=== PATIENT | male | born 1955 | race Caucasian/White ===

== ENCOUNTER 2017-01-15 15:33 | Emergency (ER) | payer BC ==
[2017-01-15] MEDS ORDERED: IPRATROPIUM-ALBUTEROL 3 ML NEB INHALATION STA (16:00)
[2017-01-15] MEDS ORDERED: SODIUM CHLORIDE 0.9% 1,000 ML IV ONE (16:01)
[2017-01-15 16:50] LABS: Anion Gap 12 mmol/L; Blood Urea Nitrogen 13 mg/dL (9-20); Carbon Dioxide 25 mmol/L (22-30); Chloride 102 mmol/L (98-107); Glucose 93 mg/dL (74-99); Non-African American GFR(MDRD) >60 (>60 ml/min/1.73 sqM); Potassium 4.5 mmol/L (3.5-5.1); Sodium 139 mmol/L (137-145)
--- NOTE | 2017-01-15 16:52 | ED ---
General Adult HPI - General Chief complaint: Upper Respiratory Infection Stated complaint: Bronchitis Time Seen by Provider: 01/15/17 15:51 Source: patient, family, RN notes reviewed Mode of arrival: ambulatory Limitations: no limitations - History of Present Illness Initial comments: 61-year-old male presenting for cough and shortness of breath. Patient states that he began developing symptoms about 1 week ago. He states he was seen several days ago by [facility] and started on Augmentin for sinus infection and bronchitis. He states that he has had persistent nonproductive cough. He states that he does smoke tobacco but denies any official COPD diagnosis. He is not currently on any other medications. He has been trying [id number] medications without relief the symptoms. He denies any chest pain associated. He states he has had some fevers and chills associated. - Related Data Home Medications Medication Instructions Recorded Confirmed Amoxic-Pot Clav 875-125Mg 1 tab PO Q12HR 01/15/17 01/15/17 [Augmentin 875-125] D-Methorphan/Acetamin/Doxylamn 30 ml PO HS PRN 01/15/17 01/15/17 [Vicks Nyquil Cold & Flu Liquid] Vicks Sinex Nasal [place] 1 spray NASAL DAILY PRN 01/15/17 01/15/17 Previous Rx's Medication Instructions Recorded Azithromycin [Zithromax] 250 mg PO DAILY #6 tab 01/15/17 Allergies Allergy/AdvReac Type Severity Reaction Status Date / Time No Known Allergies Allergy Verified 01/15/17 15:48 Review of Systems ROS Statement: Those systems with pertinent positive or pertinent negative responses have been documented in the HPI. ROS Other: All systems not noted in ROS Statement are negative. Past Medical History Past Medical History: GERD/Reflux History of Any Multi-Drug Resistant Organisms: None Reported Past Surgical History: No Surgical Hx Reported Past Anesthesia/Blood Transfusion Reactions: No Reported Reaction Past Psychological History: No Psychological Hx Reported Smoking Status: Current every day smoker Past Alcohol Use History: Occasional Past Drug Use History: None Reported General Exam - General Exam Comments Initial Comments: General: Awake and Alert. No acute distress. Does not appear acutely ill. Eyes: KATERYNA, EOM intact. No nystagmus. No scleral icterus. HENT: Atraumatic, normocephalic. Mucous membranes moist. Trachea midline. Neck: The neck is supple, there is no tenderness or JVD. Cardiovascular: Regular rate and rhythm. No murmur, rub, or gallop is appreciated. Distal pulses intact. Respiratory: Lungs are clear to auscultation bilaterally. Mildly decreased lung sounds. No wheezes, rales, rhonchi. No respiratory distress. Gastrointestinal: Soft, Nontender. No rebound or guarding. Non-distended. No masses or organomegaly noted. No CVA tenderness. Musculoskeletal: No tenderness. Normal ROM. No gross deformity. No strength deficits. Neurological: A&Ox3. CN II-XII grossly intact, There are no obvious motor or sensory deficits. Coordination appears grossly intact. Speech is normal. Skin: Skin is warm and dry and no rashes or lesions are noted. Psychiatric: Cooperative, appropriate mood & affect, normal judgment. Limitations: no limitations Course Vital Signs 01/15/17 01/15/17 01/15/17 15:38 16:51 17:00 Temperature 100.5 F H Pulse Rate 89 72 76 Respiratory 20 Rate Blood Pressure 123/75 O2 Sat by Pulse 97 Oximetry 01/15/17 17:35 Temperature 100.7 F H Pulse Rate 79 Respiratory 18 Rate Blood Pressure 134/60 O2 Sat by Pulse 97 Oximetry EKG Findings - EKG Comments: EKG Findings:: EKG 16:23. Normal sinus rhythm. Rate 68. IN 142. QRS 92. QT/ QTc 398/423. Normal axis. Incomplete right bundle branch block. No STEMI. Nonspecific EKG. Medical Decision Making - Medical Decision Making 61-year-old male presenting for cough and congestion. Noted to have low grade fever on initial vitals, but otherwise stable. CXR no acute process Labwork with stable CBC, stable BMP. Influenza negative. Patient was given breathing treatments and states he feels improved after this. Updated on results and imaging. Discussed no definitive evidence of pneumonia though plan to add additional azithromycin coverage to his current Augmentin for atypical pneumonia coverage. Patient was offered Tylenol or Motrin for his low-grade fever although he declines and says he'll take some when he gets home. Discussed fever management as well. Discussed recommendation for smoking cessation and close follow-up with PCP. Discussed concerning signs symptoms may return to the ED. Patient and are agreeable with plan of discharge home. - Lab Data Result diagrams: 01/15/17 16:23 01/15/17 16:23 Lab Results 01/15/17 01/15/17 01/15/17 Range/Units 16:23 16:23 16:23 WBC 3.6 L (3.8-10.6) k/uL RBC 5.08 (4.30-5.90) m/uL Hgb 16.2 (13.0-17.5) gm/dL Hct 47.4 (39.0-53.0) % MCV 93.3 (80.0-100.0) fL MCH 31.9 (25.0-35.0) pg MCHC 34.2 (31.0-37.0) g/dL RDW 12.6 (11.5-15.5) % Plt Count 151 (150-450) k/uL Neutrophils % (Manual) 38.0 % Band Neutrophils % 2.0 % Lymphocytes % (Manual) 33.0 % Monocytes % (Manual) 25.0 % Eosinophils % (Manual) 2.0 % Neutrophils # (Manual) 1.4 (1.3-7.7) k/uL Lymphocytes # (Manual) 1.2 (1.0-4.8) k/uL Monocytes # (Manual) 0.9 (0-1.0) k/uL Eosinophils # (Manual) 0.1 (0-0.7) k/uL Nucleated RBCs 0 (0-0) /100 WBC Manual Slide Review Performed RBC Morphology Normal Sodium 139 (137-145) mmol/L Potassium 4.5 (3.5-5.1) mmol/L Chloride 102 (98-107) mmol/L Carbon Dioxide 25 (22-30) mmol/L Anion Gap 12 mmol/L BUN 13 (9-20) mg/dL Creatinine 1.02 (0.66-1.25) mg/dL Est GFR (MDRD) Af Amer >60 (>60 ml/min/1.73 sqM) Est GFR (MDRD) Non-Af >60 (>60 ml/min/1.73 sqM) Glucose 93 (74-99) mg/dL Calcium 9.0 (8.4-10.2) mg/dL Influenza Type A RNA Not Detected (Not Detectd) Influenza Type B (PCR) Not Detected (Not Detectd) - EKG Data -: EKG Interpreted by Hi EKG shows normal: sinus rhythm Rate: normal Disposition Clinical Impression: Cough, Fever, Sinusitis, Tobacco abuse Disposition: HOME SELF-CARE Condition: Stable Instructions: Upper Respiratory Infection (ED) Prescriptions: Azithromycin [Zithromax] 250 mg PO DAILY #6 tab Referrals: Noam Clement MD [Primary Care Provider] - 1-2 days Time of Disposition: 17:46
[2017-01-15 16:55] LABS: CH 32.4; CHCM 34.9; HCT 47.4 % (39.0-53.0); HDW 2.55; HGB 16.2 gm/dL (13.0-17.5); MCH 31.9 pg (25.0-35.0); MCHC 34.2 g/dL (31.0-37.0); MCV 93.3 fL (80.0-100.0); Mean Platelet Volume 7.5; RBC 5.08 m/uL (4.30-5.90); RDW 12.6 % (11.5-15.5); WBC 3.6 k/uL (3.8-10.6); WBC (Perox) 3.37
[2017-01-15 17:06] LABS: Add Differential Manual Differential
[2017-01-15 17:10] LABS: Manual Review Performed; Nucleated Red Blood Cells 0 /100 WBC (0-0); RBC Morphology Normal; Total Cells Counted 100
--- NOTE | 2017-01-15 17:18 | XR ---
EXAMINATION TYPE: XR chest 2V DATE OF EXAM: 01/15/2017 4:57 PM COMPARISON: NONE HISTORY: Cough and congestion TECHNIQUE: Frontal and lateral views of the chest are obtained. FINDINGS: Heart and mediastinum are normal. Lungs are clear. Diaphragm is normal. Bony thorax is int act. IMPRESSION: Normal chest
[2017-01-15 17:38] VITALS: BP 134/60; RESP 18; TEMP 100.7
[2017-01-15 17:42] VITALS: PULSE 79
== END 2017-01-15 17:55 | disposition home or self-care (01) ==
LOC: EC 15:33
DX: J32.9 Chronic sinusitis, unspecified (principal); F17.200 Nicotine dependence, unspecified, uncomplicated
CPT/HCPCS: 36415; 71020; 80048; 85025; 87502; 93005; 94640; 96360; 99284

== ENCOUNTER 2019-08-29 18:29 | Emergency (ER) | payer BC, MEDICARE ==
[2019-08-29 18:32] VITALS: BP 154/74; PULSE 59; RESP 18; TEMP 97.9
--- NOTE | 2019-08-29 19:06 | ED ---
General Adult HPI - General Chief complaint: Fall Stated complaint: Fall Time Seen by Provider: 08/29/19 18:40 Source: patient, RN notes reviewed Mode of arrival: ambulatory Limitations: no limitations - History of Present Illness Initial comments: 63-year-old male presents to the emergency department for a chief complaint of fall. Patient has a history of GERD, no blood thinners. Patient was at [employer]. States he went to open the double doors and a wet floor sign was placed there that he did not see. States he tripped over this and fell onto his left knee and wrist. Patient is unsure if he had his head. He does not believe he hit his head but states that the staff did tell him he may have. Denies loss of consciousness. Patient did have a slight headache afterwards but has no symptoms of headache at this time. Patient states he is here because the staff told him he needed to be checked out but feels fine. Patient has no other complaints at this time including shortness of breath, chest pain, abdominal pain, nausea or vomiting, headache, or visual changes. - Related Data Home Medications Medication Instructions Recorded Confirmed Amoxic-Pot Clav 875-125Mg 1 tab PO Q12HR 01/15/17 01/15/17 [Augmentin 875-125] Dm/Acetaminophen/Doxylamine [Vicks 30 ml PO HS PRN 01/15/17 01/15/17 Nyquil Cold & Flu Liquid] Vicks Sinex Nasal [place] 1 spray NASAL DAILY PRN 01/15/17 01/15/17 Previous Rx's Medication Instructions Recorded Azithromycin [Zithromax] 250 mg PO DAILY #6 tab 01/15/17 Allergies Allergy/AdvReac Type Severity Reaction Status Date / Time No Known Allergies Allergy Verified 08/29/19 18:32 Review of Systems ROS Statement: Those systems with pertinent positive or pertinent negative responses have been documented in the HPI. ROS Other: All systems not noted in ROS Statement are negative. Past Medical History Past Medical History: GERD/Reflux History of Any Multi-Drug Resistant Organisms: None Reported Past Surgical History: No Surgical Hx Reported Past Anesthesia/Blood Transfusion Reactions: No Reported Reaction Past Psychological History: No Psychological Hx Reported Smoking Status: Current every day smoker Past Alcohol Use History: Occasional Past Drug Use History: None Reported General Exam - General Exam Comments Initial Comments: Left wrist: Full range of motion of the left wrist. Full range motion of all digits in the left hand. There is no tenderness of the left wrist. No evidence of trauma or abrasion. Radial pulses 2+. Left knee: There is a small abrasion superior to the left knee. No edema ecchymosis or swelling. Pt has full range of motion including full flexion and extension. DP pulses 2+. Patient is ambulatory on the left knee without any difficulty. Limitations: no limitations General appearance: alert, in no apparent distress Head exam: Present: atraumatic (Atraumatic. No evidence of trauma.), normocephalic, normal inspection Eye exam: Present: normal appearance, PERRL, EOMI. Absent: scleral icterus, conjunctival injection, periorbital swelling ENT exam: Present: normal exam, normal oropharynx, mucous membranes moist, TM's normal bilaterally (Negative hemotympanum), normal external ear exam Neck exam: Present: normal inspection, full ROM. Absent: tenderness, meningismus, lymphadenopathy Respiratory exam: Present: normal lung sounds bilaterally. Absent: respiratory distress, wheezes, rales, rhonchi, stridor Cardiovascular Exam: Present: regular rate, normal rhythm, normal heart sounds. Absent: systolic murmur, diastolic murmur, rubs, gallop, clicks GI/Abdominal exam: Present: soft, normal bowel sounds. Absent: distended, tenderness, guarding, rebound, rigid Neurological exam: Present: alert, oriented X3, CN II-XII intact, normal gait, other (GCS 15) Psychiatric exam: Present: normal affect, normal mood Course Vital Signs 08/29/19 18:29 Temperature 97.9 F Pulse Rate 59 L Respiratory 18 Rate Blood Pressure 154/74 O2 Sat by Pulse 97 Oximetry Medical Decision Making - Medical Decision Making 63-year-old male presents for fall. He is complaining of left knee pain. Patient does not recall hitting his head and is not having a headache but states staff told him he may have hit his head. No focal neurologic deficits. Physical exam is documented. I did offer x-ray of the left knee which patient refused stating he does not feel it is broken and is walking on it. States that he would prefer to follow-up with his doctor for an x-ray if it does not improve in the next few days. I also recommended CAT scan of the brain which patient refused stating he does not have a headache or any other symptoms. States he only came because staff told him he needed to be evaluated. States he is also requesting a note stating he was seen here so he can give it back to the [facility]. He will return if he has any worsening symptoms. I discussed this case with attending Dr. Yang who agrees with this assessment and treatment plan. Disposition Clinical Impression: Fall, Knee pain, left Disposition: HOME SELF-CARE Condition: Good Instructions (If sedation given, give patient instructions): Knee Pain (ED) Additional Instructions: Please take Tylenol for pain. Rest ice and elevate the left knee. If you have any worsening symptoms such as worsening knee pain, unable to ambulate, or headaches and return to the emergency department. Otherwise follow-up with your primary care provider in the next 1-2 days. Is patient prescribed a controlled substance at d/c from ED?: No Referrals: Noam Clement MD [Primary Care Provider] - 1-2 days Time of Disposition: 19:06
== END 2019-08-29 19:22 | disposition home or self-care (01) ==
LOC: EC 18:29
DX: M25.562 Pain in left knee (principal); F17.200 Nicotine dependence, unspecified, uncomplicated
CPT/HCPCS: 99283

== ENCOUNTER → 2023-06-02 | Outpatient (CLI) | payer MEDICARE, BC ==
--- NOTE | 2023-06-08 20:43 | HM ---
HOLTER MONITOR REPORT This is a 48-hour Holter monitor. INDICATION: Cardiac arrhythmia. FINDINGS: Underlying rhythm is sinus with an average heart rate of 59 beats per minute. Heart rate varied from 37 beats per minute to 93 beats per minute. Episodes of sinus bradycardia noted. Occasional PVCs including bigeminy and trigeminy are noted. Occasional PACs are also noted. CONCLUSION: This 48-hour Holter revealed sinus rhythm with frequent and complex ventricular ectopy. MMODL / IJN: [id number] /
== END | disposition home or self-care (01) ==
LOC: RADECHMAIN 11:26
PROVIDERS: ATTEND Family Medicine
DX: I49.9 Cardiac arrhythmia, unspecified (principal)
CPT/HCPCS: 93225; 93226

== ENCOUNTER → 2023-08-01 | Outpatient (CLI) | payer BC, MEDICARE ==
--- NOTE | 2023-08-01 20:49 | MR ---
EXAMINATION TYPE: MR lumbar spine wo con DATE OF EXAM: 08/01/2023 7:04 PM CLINICAL INDICATION:Male, 67 years old with history of M54.50 low back pain; COMPARISON: 07/05/2011 TECHNIQUE: Multi planar, multi sequence imaging was performed utilizing: T1-weighted, T2-weighted, a nd turbo inversion recovery imaging of the lumbar spine. IV Contrast: (None if empty) FINDINGS: Alignment: The lumbar vertebral bodies have preserved heights and alignment. Cord: The conus medullaris and the distal spinal cord appear unremarkable with regards to their signa l intensity and morphology. Bones/Discs: Multilevel degeneration changes with osteophyte formation disc space narrowing and facet joint arthropathy. Modic endplate changes at L4-L5. No abnormal bony edema on inversion recovery seq uences. T12-L1: No evidence of significant spinal canal stenosis or neural foraminal stenosis. L1-L2: No evidence of significant spinal canal stenosis or neural foraminal stenosis. L2-L3: No evidence of significant spinal canal stenosis or neural foraminal stenosis. L3-L4: Disc bulge and facet joint arthropathy result in mild to moderate spinal canal and moderate bi lateral neural foraminal stenosis. L4-L5: Disc bulge and facet joint arthropathy result in mild spinal canal and moderate to severe bila teral neural foraminal stenosis. L5-S1: The disc is rounded posterior morphology without significant spinal canal stenosis. Facet join t arthropathy with severe bilateral neural foraminal stenosis. No significant spinal canal or neural foraminal stenosis in the remainder of the visualized levels. Other findings: Right renal high T2 signal cyst. IMPRESSION: 1. No definitive evidence of disc herniation or significant spinal canal stenosis. 2. Moderate disc degeneration with associated osteoarthritic changes worse at L4 and L5. Additionall y there is severe bilateral L5-S1 neural foraminal stenosis..
== END | disposition home or self-care (01) ==
LOC: RADMRIMAIN 18:22
PROVIDERS: ATTEND Family Medicine
DX: M51.36 Other intervertebral disc degeneration, lumbar region (principal); M47.816 Spondylosis without myelopathy or radiculopathy, lumbar region; M99.73 Connective tissue and disc stenosis of intervertebral foramina of lumbar region
CPT/HCPCS: 72148

== ENCOUNTER → 2023-08-15 | Outpatient (CLI) | payer BC, MEDICARE ==
--- NOTE | 2023-08-15 20:29 | CT ---
EXAMINATION TYPE: CT lumbar spine wo con CT DLP: 1127.3 mGycm, Automated exposure control for dose reduction was used. DATE OF EXAM: 08/15/2023 5:47 PM COMPARISON: 08/01/2023 MRI. CLINICAL INDICATION:Male, 67 years old with history of M54.50 BACK PAIN; , Presurgical planning, DDD - chronic back pain TECHNIQUE: Multiple axial images were obtained from the midportion of T11 through the sacroiliac conchis nts. Soft tissue and bone windows in coronal and sagittal planes were obtained and reviewed. 3-D ref ormats of the bones were created on a separate workstation and submitted for review. Contrast used:none. Oral contrast used: none. FINDINGS: Alignment: There are 5 lumbar type vertebral bodies within normal alignment. Bone: No evidence of fracture is identified. Disc degeneration changes worse at L4-L5 with disc spac e narrowing osteophytes and facet joint arthropathy. There is spondylolysis of the left L5 pars inter articularis. Discs: T12-L1: No spinal canal or neural foraminal stenosis is identified. L1-L2: No spinal canal or neural foraminal stenosis is identified. L2-L3: No spinal canal or neural foraminal stenosis is identified. L3-L4: No spinal canal or neural foraminal stenosis is identified. L4-L5: Facet joint arthropathy and disc bulging result with mild spinal canal stenosis and moderate t o severe bilateral neural foraminal stenosis. L5-S1: Facet joint arthropathy and disc bulging result with mild spinal canal stenosis and severe rig ht and moderate severe left neural foraminal stenosis. Other: Right renal cyst. Severe atherosclerosis of the arterial vasculature. IMPRESSION: 1. There is spondylolysis of the left L5 pars interarticularis without evidence of anterolisthesis o f L5 on S1. 2. Disc degeneration changes worse at L4-L5 as well as neural foraminal stenosis worse at L4-L5 and L5-S1.
== END | disposition home or self-care (01) ==
LOC: RADCTMAIN 17:19
PROVIDERS: ATTEND Orthopaedic Surgery
DX: M48.062 Spinal stenosis, lumbar region with neurogenic claudication (principal); M51.36 Other intervertebral disc degeneration, lumbar region; M99.73 Connective tissue and disc stenosis of intervertebral foramina of lumbar region; M47.816 Spondylosis without myelopathy or radiculopathy, lumbar region
CPT/HCPCS: 72131

== ENCOUNTER 2023-11-18 15:52 | Emergency (ER) | payer BC, MEDICARE ==
[2023-11-18] MEDS ORDERED: BENZONATATE 100 MG CAP PO STA (16:14)
--- NOTE | 2023-11-18 16:14 | ED ---
URI HPI - General Chief Complaint: Upper Respiratory Infection Stated Complaint: Sob,Cough Time Seen by Provider: 11/18/23 16:02 Source: patient, family Mode of arrival: ambulatory Limitations: no limitations - History of Present Illness Initial Comments: 68-year-old male presenting with chief complaint of cough. Patient started having this cough on Tuesday, he was seen at his PCP on Tuesday and had a positive COVID test on Tuesday. He has been taking steroids and inhaler prescribed by his PCP, it is now Tuesday and he is continuing to cough. He d enies any shortness of breath. He admits to body aches. No chest pain, palpitations, nausea, vomiting, abdominal pain, fever, chills, ear pain, sore throat. Patient is mainly concerne answer text d that he is continuing to cough and would like something to help his cough. - Related Data Home Medications Medication Instructions Recorded Confirmed Amoxic-Pot Clav 875-125Mg 1 tab PO Q12HR 01/15/17 01/15/17 [Augmentin 875-125] Dm/Acetaminophen/Doxylamine [Vicks 30 ml PO HS PRN 01/15/17 01/15/17 Nyquil Cold & Flu Liquid] Vicks Sinex Nasal Texline 1 spray NASAL DAILY PRN 01/15/17 01/15/17 Previous Rx's Medication Instructions Recorded Azithromycin [Zithromax] 250 mg PO DAILY #6 tab 01/15/17 Benzonatate [Tessalon Perles] 100 mg PO TID PRN #9 capsule 11/18/23 Allergies Allergy/AdvReac Type Severity Reaction Status Date / Time No Known Allergies Allergy Verified 11/18/23 16:01 Review of Systems ROS Statement: Those systems with pertinent positive or pertinent negative responses have been documented in the HPI. ROS Other: All systems not noted in ROS Statement are negative. Past Medical History Past Medical History: GERD/Reflux History of Any Multi-Drug Resistant Organisms: None Reported Past Surgical History: Back Surgery Additional Past Surgical History / Comment(s): 2022 Past Anesthesia/Blood Transfusion Reactions: No Reported Reaction Past Psychological History: No Psychological Hx Reported Smoking Status: Former smoker Past Alcohol Use History: Occasional Past Drug Use History: None Reported General Exam Limitations: no limitations General appearance: alert, in no apparent distress Head exam: Present: atraumatic, normocephalic Eye exam: Present: normal appearance, EOMI ENT exam: Present: normal exam, normal oropharynx, mucous membranes moist, TM's normal bilaterally Neck exam: Present: normal inspection Respiratory exam: Present: normal lung sounds bilaterally. Absent: respiratory distress, wheezes, rales, rhonchi, stridor Cardiovascular Exam: Present: regular rate, normal rhythm, normal heart sounds. Absent: systolic murmur, diastolic murmur, rubs, gallop, clicks Neurological exam: Present: alert, oriented X3 Psychiatric exam: Present: normal affect, normal mood Skin exam: Present: warm, dry Course Vital Signs 11/18/23 11/18/23 15:55 16:07 Temperature 98.1 F Pulse Rate 61 Respiratory 20 20 Rate Blood Pressure 150/81 O2 Sat by Pulse 97 Oximetry Medical Decision Making - Medical Decision Making Was pt. sent in by a medical professional or institution ([facility], [facility], urgent care, hospital, or skilled nursing...) When possible be specific @ -No Did you speak to anyone other than the patient for history (EMS, parent, family, police, friend...)? What history was obtained from this source @ -No Did you review nursing and triage notes (agree or disagree)? Why? @ -I reviewed the triage note and agree with the following exceptions: Patient denies on multiple occasions that he is experiencing shortness of breath, he is mainly bothered by his continued cough Were old charts reviewed (outside hosp., previous admission, EMS record, old EKG, old radiological studies, urgent care reports/EKG's, skilled nursing records)? Report findings @ -No old charts were reviewed Differential Diagnosis (chest pain, altered mental status, abdominal pain women, abdominal pain men, vaginal bleeding, weakness, fever, dyspnea, syncope, headache, dizziness, GI bleed, back pain, seizure, CVA, palpatations, mental health, musculoskeletal)? @ -Differential includes COVID, bronchitis, pneumonia, pulmonary embolism, COPD, asthma, this is not an all-inclusive list EKG interpreted by me (3pts min.). @ -As above X-rays interpreted by me (1pt min.). @ -None done CT interpreted by me (1pt min.). @ -None done U/S interpreted by me (1pt. min.). @ -None done What testing was considered but not performed or refused? (CT, X-rays, U/S, labs)? Why? @ -Chest x-ray was considered, however the patient is denying any shortness of breath and fever, making this more likely due to COVID and less likely from bacterial pneumonia What meds were considered but not given or refused? Why? @ -None Did you discuss the management of the patient with other professionals (professionals i.e. DrZaira, PA, [facility], lab, RT, psych nurse, licensed social worker, mailroom manager, teacher, chief sustainability officer, test case developer)? Give summary @ -No Was smoking cessation discussed for >3mins.? @ -No Was critical care preformed (if so, how long)? @ -No Were there social determinants of health that impacted care today? How? (Homelessness, low income, unemployed, alcoholism, drug addiction, transportation, low edu. Level, literacy, decrease access to med. care, [facility] [facility], rehab)? @ -No Was there de-escalation of care discussed even if they declined (Discuss DNR or withdrawal of care, Hospice)? DNR status @ -No What co-morbidities impacted this encounter? (DM, HTN, Smoking, COPD, CAD, Cancer, CVA, ARF, Chemo, Hep., AIDS, mental health diagnosis, sleep apnea, morbid obesity)? @ -None Was patient admitted / discharged? Hospital course, mention meds given and route, prescriptions, significant lab abnormalities, going to OR and other pertinent info. @ -68-year-old male recently diagnosed with COVID 2 days ago, presenting with chief complaint of cough. Patient started experiencing symptoms 5 days ago. He has been treated with inhaler and steroids by his PCP. He is concerned that he is continuing to cough. He has no shortness of breath or fevers. Heart and lungs are clear to auscultation and normal HEENT exam. Vital signs are WNL. I explained to the patient that COVID symptoms usually persist for 7 to 10 days. I educated him on supportive management at home. He is provided with Tessalon Perles to use as needed. Discharged home. Follow-up with PCP. Report back to ER with any new or worsening symptoms. Discussed return parameters and answered all questions. Patient conveyed verbal understanding and agreed to the plan. I discussed this case in detail with my attending Undiagnosed new problem with uncertain prognosis? @ -No Drug Therapy requiring intensive monitoring for toxicity (Heparin, Nitro, Insulin, Cardizem)? @ -No Were any procedures done? @ -No Diagnosis/symptom? @ -COVID Acute, or Chronic, or Acute on Chronic? @ -Acute Uncomplicated (without systemic symptoms) or Complicated (systemic symptoms)? @ -Uncomplicated Side effects of treatment? @ -No Exacerbation, Progression, or Severe Exacerbation? @ -No Poses a threat to life or bodily function? How? (Chest pain, [place], [place], pneumonia, PE, COPD, DKA, ARF, appy, cholecystitis, CVA, Diverticulitis, Homicidal, Suicidal, threat to staff... and all critical care pts) @ -Low likelihood Disposition Clinical Impression: COVID Disposition: HOME SELF-CARE Condition: Good Instructions (If sedation given, give patient instructions): COVID-19 (Co ronavirus Disease 2019) (ED) Additional Instructions: Follow-up with PCP. Report back to ER with any new or worsening symptoms. Prescriptions: Benzonatate [Tessalon Perles] 100 mg PO TID PRN #9 capsule PRN Reason: Cough Is patient prescribed a controlled substance at d/c from ED?: No Referrals: Noam Clement MD [Primary Care Provider] - 1-2 days Time of Disposition: 16:11
[2023-11-18 16:31] VITALS: BP 150/81; PULSE 61; RESP 20; TEMP 98.1
== END 2023-11-18 16:22 | disposition home or self-care (01) ==
LOC: EC 15:52
DX: U07.1 COVID-19 (principal); Z87.891 Personal history of nicotine dependence
CPT/HCPCS: 99284

== ENCOUNTER → 2024-01-02 | Outpatient (CLI) | payer BC, MEDICARE ==
[2024-01-02 12:32] LABS: African American GFR (CKD) >90 (>60 ml/min/1.73 sqM); Blood Urea Nitrogen 14 mg/dL (9-20); Non-African American GFR(CKD) >90 (>60 ml/min/1.73 sqM)
--- NOTE | 2024-01-02 14:06 | CT ---
EXAMINATION: CTA CHEST, ABDOMEN AND PELVIS WITHOUT AND WITH IV CONTRAST, DATE OF EXAM: 01/02/2024 1:46 PM HISTORY: I71.9 AORTIC ANEURYSM OF UNSPECIFIED SITE TECHNIQUE: CTA examination of the chest was performed following the intravenous administration of 100 mL 370. Sagittal, coronal and 3-D reformatted images were provided. CT dose lowering techniques were used, to include: automated exposure control, adjustment for patient size, and or use of iterative r econstruction. COMPARISON: None. FINDINGS: CHEST: Lungs: Normal. Pleura: Normal. Mediastinum and Tess: Normal. Pulmonary Arteries: Pulmonary arteries are well-opacified to the subsegmental level, no evidence of p ulmonary embolism. Cardiovascular: The thoracic aorta measures up to 3.6 cm in diameter in the ascending thoracic aorta. There is no evidence of aortic dissection. Mild vascular calcification and plaque is otherwise seen. There is mild patchy coronary artery calcifications. 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 Upper Abdomen: Normal. Chest Wall: Normal. ABDOMEN: The liver, adrenals, left kidney, spleen, pancreas are within normal limits. There is a gallstone wit hin the gallbladder. There is a cyst within the right kidney measuring up to 6 cm in diameter in the upper pole. There is no mesenteric or retroperitoneal lymphadenopathy. There are no dilated loops of bowel or free intraperitoneal air. There is significant vascular calcification and moderate plaque seen throughout the abdominal aorta w ithout evidence of aneurysmal dilation or dissection. Pelvis: There is no free fluid within the pelvis. There is no pelvic or inguinal lymphadenopathy. No gross bladder abnormalities are seen. Musculoskeletal: There are no acute osseous abnormalities. Posterior spinal fusion is seen within the lumbar region between L3 and S1. IMPRESSION: 1. No evidence of thoracic or abdominal aortic aneurysm or dissection. 2. Atherosclerotic changes. 3. Cholelithiasis.
== END | disposition home or self-care (01) ==
LOC: RADCTMAIN 11:55
PROVIDERS: ATTEND Internal Medicine Interventional Cardiology
DX: K80.20 Calculus of gallbladder without cholecystitis without obstruction (principal); I71.9 Aortic aneurysm of unspecified site, without rupture; I70.0 Atherosclerosis of aorta
CPT/HCPCS: 82565; 84520; 71275; 36415; 74174; Q9967